=== PATIENT | male | born 1980 | race Caucasian/White ===

== ENCOUNTER 2018-07-04 23:38 | Emergency (ER) | payer MEDICAID ==
--- NOTE | 2018-07-04 23:58 | C.PDOC ---
History Of Present Illness 37 year old male with no prior medical history presents to the emergency department with complaints of diffuse body aches for the last 3 days. Patient reports mild back pain, but denies any fall or trauma. No hx of IVDU or encoparesis / enuresis or loss of sensation in his legs. He denies fever, chills, sweats, recent travel, abdominal pain, constipation, diarrhea, dark bloody stool, nausea, vomiting, bug bites, difficulty urinating. Time Seen by Provider: 07/04/18 23:48 Chief Complaint (Nursing): Abdominal Pain History Per: Patient History/Exam Limitations: no limitations Onset/Duration Of Symptoms: Days (3) Current Symptoms Are (Timing): Still Present Location Of Pain/Discomfort: Diffuse Quality Of Discomfort: "Pain" Associated Symptoms: Back Pain. denies: Fever, Chills, Nausea, Vomiting, Diar nery, Chest Pain, Constipation, Urinary Symptoms Recent travel outside of the [place]: No Past Medical History Reviewed: Historical Data, Nursing Documentation, Vital Signs - Medical History PMH: No Chronic Diseases Surgical History: No Surg Hx Family History: States: No Known Family Hx - Social History Hx Alcohol Use: No Hx Substance Use: No - Immunization History Hx Tetanus Toxoid Vaccination: Yes Hx Influenza Vaccination: No Hx Pneumococcal Vaccination: No Review Of Systems Constitutional: Negative for: Fever, Chills, Weakness, Malaise, Weight loss Eyes: Negative for: Pain, Vision Change, Eyelid Inflammation, Redness ENT: Negative for: Ear Pain, Ear Discharge, Nose Pain, Nose Discharge, Nose Congestion, Mouth Pain, Mouth Swelling, Throat Pain, Throat Swelling Cardiovascular: Negative for: Chest Pain, Palpitations, Orthopnea, Edema Respiratory: Negative for: Cough, Shortness of Breath, SOB with Excertion, Pleuritic Pain, Sputum Gastrointestinal: Positive for: Abdominal Pain (epigastrics), Diarrhea. Negat dorota for: Nausea, Vomiting, Constipation, Melena, Hematochezia, Hematemesis Genitourinary: Negative for: Dysuria, Frequency, Incontinence, Hematuria, Penile Discharge, Rash, Penile Pain Musculoskeletal: Positive for: Back Pain. Negative for: Neck Pain, Shoulder Pain, Arm Pain, Hand Pain, Leg Pain, Foot Pain Skin: Negative for: Rash, Lesions, Jaundice, Bruising Neurological: Negative for: Weakness, Numbness Physical Exam - Physical Exam Appears: Well, Non-toxic, No Acute Distress Skin: Normal Color, Warm, Dry, No Diaphoretic, No Pale, No Rash Head: Atraumatic, Normacephalic, No Tenderness, No Swelling, No Abrasion, No Laceration Eye(s): bilateral: Normal Inspection, PERRL, EOMI Ear(s): Bilateral: Normal Nose: Normal Oral Mucosa: Moist Tongue: Normal Appearing Lips: Normal Appearing Teeth: Normal Dentition Gingiva: Normal Appearing Throat: Normal, No Erythema, No Exudate, No Drooling, No Mass Neck: Normal, No Midline Cervical Tenderness, No Paracervical Tenderness, Supple, Other (no meningeal signs) Lymphatic: Normal Exam, No Adenopathy Chest: Symmetrical, No Tenderness Cardiovascular: Rhythm Regular, No Friction Rub, No Murmur, No JVD Respiratory: Normal Breath Sounds, No Rales, No Rhonchi, No Wheezing Gastrointestinal/Abdominal: Soft, Tenderness (epigastric), No Mass, No Distention, No Guarding, No Rebound Back: Normal Inspection, No CVA Tenderness, No Vertebral Tenderness, No Decreased ROM, No Muscle Spasm, Paraspinal Tenderness (mild tenderness to the L3 paraspinal area ) Extremity: Normal ROM, No Tenderness, No Pedal Edema, Capillary Refill (normal), No Deformity, No Swelling Pulses: Left Radial: Normal, Right Radial: Normal, Left Dorsalis Pedis: Normal, Right Dorsalis Pedis: Normal Neurological/Psych: Oriented x3, Normal Speech, Normal Cognition, Normal Cranial Nerves, No Cerebellar Signs, Normal Motor Gait: Steady ED Course And Treatment - Laboratory Results Result Diagrams: 07/05/18 00:15 07/05/18 00:15 Medical Decision Making Medical Decision Makin37 year old male with no prior medical history presents to the emergency department with complaints of diffuse body aches for the last 3 days. He also notes abdominal pain, mild epigastric, throbbing like, without radiation. No RUQ pain on exam. No RLQ or periumbilical pain. No LLQ pain. Pt notes diarrhea as well x1 yesterday, non bloody non dark and without recent abx. No CVAT or midline tenderness on exam. Diffuse body aches w/ out rash: likely viral syndrome vs gastritis given pain in epigastric area Plan: Chemistry CBC Motrin 600mg PO NaCl IV Fluids Urinalysis 0120 labs largely unremarkable: mildly elevated lipase, non diagnostic of panceatitis reassessed, pt in NAD, playing with phone, comfortable abd non-ttp, epigastric pain fully resolved No RLQ or periumbulical pain. Endorsed to pt regarding elevated lipase and need to f/u w/ GI: he is agreeable to plan. Disposition - Disposition Referrals: Bess Ritchie MD [Staff Provider] - Melvin Lopez [Staff Provider] - [facility] [Outside] [facility] [Outside] [facility] [Outside] Disposition: HOME/ ROUTINE Disposition Time: 01:17 Condition: STABLE Additional Instructions: FOLLOW UP WITH DR. MOSES AND YOUR PRIMARY CARE DOCTOR ANASTASIYADG YOUR PAIN. TAKE OVER THE COUNTER TYLENOL OR MOTRIN WRITTEN ON THE BOTTLE FOR YOU PAIN. HESHAM YOO, thank you for letting us take care of you today. Your provider was Gaudencio Ferris and you were treated for BODYACHE. The emergency medical care you received today was directed at your acute symptoms. If you were prescribed any medication, please fill it and take as directed. It may take several days for your symptoms to resolve. Return to the Emergency Department if your symptoms worsen, do not improve, or if you have any other problems. Please contact your doctor or call one of the physicians/clinics you have been referred to that are listed on the Patient Visit Information form that is included in your discharge packet. Bring any paperwork you were given at discharge with you along with any medications you are taking to your follow up visit. Our treatment cannot replace ongoing medical care by a primary care provider outside of the emergency department. Thank you for allowing the [facility] team to be part of your care today. If you had an X-Ray or CT scan: A Radiologist will review the ED reading if any change in treatment is needed we will contact you. If you had a blood, urine, or wound culture: It will take several days for the results, if any change in treatment is needed we will contact you. If you had an STI test: It will take 48 hours for the results. Please call after 1 week if you have not heard back. Prescriptions: Famotidine [Pepcid] 20 mg PO Q12H PRN 3 Days #6 tab PRN Reason: Dyspepsia Instructions: Gastritis, Viral Gastroenteritis, Adult (DC) Forms: LOVETh[employer] ([place]) - Clinical Impression Clinical Impression: Viral gastritis, Viral syndrome, Elevated lipase - Scribe Statement The provider has reviewed the documentation as recorded by the Scribe (Rodney Meyer) Provider Attestation: All medical record entries made by the Scribe were at my direction and personally dictated by me. I have reviewed the chart and agree that the record accurately reflects my personal performance of the history, physical exam, medic al decision making, and the department course for this patient. I have also personally directed, reviewed, and agree with the discharge instructions and disposition.
[2018-07-05] MEDS ORDERED: Sodium Chloride 0.9% 1,000 ML IV ONE (00:02)
[2018-07-05 00:30] LABS: ALB/GLOB RATIO 1.4 (1.0-2.1); ALBUMIN 4.5 g/dL (3.5-5.0); ALT/SGPT 25 U/L (21-72); AST/SGOT 17 U/L (17-59); BLOOD UREA NITROGEN 13 mg/dL (9-20); CALCIUM 9.1 mg/dl (8.6-10.4); GFR NON-AFRICAN AMERICAN > 60; LIPASE 334 U/L (23-300)
[2018-07-05 00:30] LABS: URINE BILIRUBIN NEGATIVE (NEGATIVE); URINE BLOOD NEGATIVE (NEGATIVE); URINE CLARITY Clear (Clear); URINE COLOR Straw (YELLOW); URINE GLUCOSE (UA) NORMAL (Normal); URINE LEUKOCYTE ESTERASE NEG Leu/uL (Negative); URINE PROTEIN NEGATIVE (NEGATIVE); URINE UROBILINOGEN NORMAL mg/dL (0.2-1.0)
[2018-07-05 00:31] LABS: BASO % 0.8 % (0.0-2.0); EOS # 0.1 K/uL (0.0-0.7); EOS % 3.2 % (0.0-4.0); HEMOGLOBIN 13.6 g/dL (12.0-18.0); LYMPH # 1.5 K/uL (1.0-4.3); LYMPH % 55.8 % (20.0-40.0); MEAN CELL VOLUME 84.6 fL (80.0-94.0); MEAN CORPUSCULAR HEMOGLOBIN 27.9 pg (27.0-31.0); MEAN CORPUSCULAR HGB CONC 32.9 g/dL (33.0-37.0); MEAN PLATELET VOLUME 8.7 fL (7.2-11.7); MONO # 0.5 K/uL (0.0-0.8); MONO % 17.1 % (0.0-10.0); NEUT # 0.6 K/uL (1.8-7.0); NEUT % 23.1 % (50.0-75.0); NRBC % 0.2 % (0.0-2.0); RBC 4.88 Mil/uL (4.40-5.90); RED CELL DISTRIBUTION WIDTH 13.8 % (11.5-14.5)
[2018-07-05 00:39] LABS: WHITE BLOOD COUNT 2.7 K/uL (4.8-10.8)
[2018-07-05 01:39] VITALS: BP 101/64; PULSE 64; RESP 18; TEMP 97.7; O2SAT 100
== END 2018-07-05 01:38 | disposition home or self-care (01) ==
LOC: C.ER 23:38
DX: A08.4 Viral intestinal infection, unspecified (principal); B34.9 Viral infection, unspecified; R74.8 Abnormal levels of other serum enzymes
CPT/HCPCS: 80053; 81001; 82550; 83690; 85025; 96360; 99284; J7030